=== PATIENT | male | born 1975 | race Caucasian/White ===

== ENCOUNTER 2017-10-16 11:06 | Day surgery (SDC) | payer BC ==
[2017-10-12 15:52] VITALS: BMI 44.9
[~2017-10-16 11:06] MED LIST: LACTATED RINGERS 1,000 ML IV SCH
[2017-10-16] MEDS ORDERED: LIDOCAINE 1% 20 ML VIAL (10MG/ML) FOR IV START INTRADERMA ONE (12:38)
[2017-10-16 12:46] LABS: Glucose,Whole Blood 208 mg/dL (75-99)
[2017-10-16] MEDS ORDERED: LIDOCAINE 1% INJ 10MG/ML (20 ML MDV) ONE (13:55)
[2017-10-16] MEDS ORDERED: PROPOFOL 10 MG/ML 20 ML VIAL IV ONE (13:55)
[2017-10-16 14:26] VITALS: RESP 16
--- NOTE | 2017-10-16 14:32 | P.PCN ---
Date of Procedure: 10/16/17 Procedure(s) Performed: Procedure: Total colonoscopy. Preoperative diagnosis: Hemoccult-positive stools. Postoperative diagnosis: Exam to the cecum within normal limits. Preparation: HalfLytely prep. Sedation: Was provided by anesthesia. Brief clinical history: The patient is a 41-year-old male who is referred for this evaluation because of finding of occult blood in his stools. He has no abdominal complaints, bleeding or anemia. No family history of colon cancer. This would be his first colonoscopy. Procedure: With the patient on his left lateral decubitus position and after informed consent and adequate sedation, the perianal area was inspected and it did not show any fissures or fistulas. He were no masses felt on digital rectal examination. The Olympus CFQ 160L video colonoscope was then inserted in the rectum in the usual fashion and advanced to the cecum. The mucosa appeared healthy. No polyps or tumors were seen or any obvious diverticular disease or other pathology. No bleeding. I retroflexed the endoscope in the rectum before the endoscope was withdrawn. The patient tolerated the procedure well. Plan: The patient was reassured. In the absence of upper GI complaints or anemia, I did not recommend upper GI workup for the workup of his Hemoccult positive stools and this can be kept as a contingency based on his course. He will follow up with you as planned and I will be happy to see in the future if needed. For screening colonoscopy, I recommended repeat exam in 10 years.
[2017-10-16 14:54] VITALS: BP 142/95; PULSE 73
== END 2017-10-16 15:02 | disposition home or self-care (01) ==
LOC: ORWHC2ENDO 11:06
DX: R19.5 Other fecal abnormalities (principal); R73.03 Prediabetes; E66.01 Morbid (severe) obesity due to excess calories; Z68.41 Body mass index [BMI] 40.0-44.9, adult
CPT/HCPCS: 45378; J2001; J2704